=== PATIENT | male | born 1990 | race Caucasian/White ===

== ENCOUNTER 2019-05-25 12:19 | Emergency (ER) | payer OTHER ==
--- OUTSIDE RECORDS SUMMARY | 2019-05-25 12:43 | XMS REPORT | Continuity of Care Document ---
:1990 External Reference #:[id number] Author Name Bisi Ron NP Address [address] [place] [address] Care Team Providers Name Role Phone Balta Jung MD - Family Care Team Information Sas Developer [phone] Medicine Problems Description No Information Available Social History Type Date Description Comments Sex Unknown Tobacco Use Start: Unknown Nonsmoker Smoking Status Reviewed: 02/14/18 Nonsmoker Allergies, Adverse Reactions, Alerts Active Allergies Reaction Severity Comments Date NKDA 11/24/2017 Tree Nuts Anaphylaxis 11/24/2017 Sesame Anaphylaxis 11/24/2017 Medications Active Medications SIG Qnty Indications Ordering Provider Date Rizatriptan Benzoate take at first 5tabs M54.81 Bisi Sparks 03/28/2019 sign of headache. OLLIE Ron 10mg Tablets may repeat once after 2 hours. do not use more than 3 days per week. Epipen 2-Saturnino use as directed 2units Balta Gaona 09/20/2018 MD Erich 0.3mg/0.3ML Solution Auto-Inject Losartan Potassium 1 by mouth every 90tabs Balta Gaona 50mg day MD Erich Tablets Alprazolam 1 tab po bid as 30tabs Balta Gaona 0.25mg needed anxiety MD Erich Tablets Valacyclovir HCL take 1 tablet by 14tabs Rhett Escobedo, 1gm mouth twice a day M.D. Tablets for 7 days Immunizations Description No Information Available Vital Signs Date Vital Result Comment 03/28/2019 3:53pm BP Systolic 102 mmHg BP Diastolic 68 mmHg Heart Rate 78 /min Body Temperature 98.4 F Respiratory Rate 16 /min Weight 132.00 lb 11/27/2018 11:15am BP Systolic 90 mmHg BP Diastolic 60 mmHg Heart Rate 64 /min Body Temperature 97.7 F Respiratory Rate 16 /min Height 72 inches 6'0" Weight 135.00 lb BMI (Body Mass Index) 18.3 kg/m2 Results Test Date Facility Test Result H/L Range Note Xray 12/21/2018 [facility] Chest W/O Contrast SEE [facility] [phone] Procedures Description No Information Available Medical Devices Description No Information Available Encounters Type Date Location Provider Dx Diagnosis Office Visit 11/27/2018 [facility] Office Balta Gaona M25.512 Pain in left 11:20a MD Erich shoulder Assessments Date Code Description Provider 03/28/2019 M54.81 Occipital neuralgia Bisi Ron, OLLIE 11/27/2018 M25.512 Pain in left shoulder Balta Jung MD Plan of Treatment 03/28/2019 - Bisi Ron, NPM54.81 Occipital neuralgiaNew Medication: Rizatriptan Benzoate 10 mg - take at first sign of headache. may repeat once after 2 hours. do not use more than 3 days per week.Comments:I have no concerns today -- no signs of herpetic outbreak or giant cell artereritis. Please call GERARDO if condition changes/worsens in any wayAllComments:1. Patient has been queried about patient's goals/preferences and functional/lifestyle goals at relevant visits. If relevant, describe: Has been discussed, noted above2. Treatment goals as explainedto the patient: see above3. Are there barriers to meeting treatment goals? Yes If Yes, please describe: Barriers include possible insurance limits, disease process, and difficulty with lifestyle changes4. Self-Management goals as described to the patient: Yes, see above As always, we strongly encourage a healthy diet and making physical activity a part of your every day life. If you have questions about how or where to start, please contact the office. Functional Status Description No Information Available Mental Status Description No Information Available Referrals Description No Information Available
--- OUTSIDE RECORDS SUMMARY | 2019-05-25 12:43 | XMS REPORT | Continuity of Care Document ---
:1990 External Reference #:[id number] Author Name Balta Jung MD Address [address] [facility] [place] [address] Care Team Providers Name Role Phone Balta Jung MD - Family Care Team Information Fingernail Technician Medicine Problems Description No Information Available Social History Type Date Description Comments Sex Unknown Tobacco Use Start: Unknown Nonsmoker Smoking Status Reviewed: 02/14/18 Nonsmoker Allergies, Adverse Reactions, Alerts Active Allergies Reaction Severity Comments Date NKDA 11/24/2017 Tree Nuts Anaphylaxis 11/24/2017 Sesame Anaphylaxis 11/24/2017 Medications Active Medications SIG Qnty Indications Ordering Provider Date Famotidine take one tablet 60tabs K21.9 Balta Gaona 04/07/2019 20mg Tablets by mouth twice a MD Erich day Rizatriptan Benzoate take at first 5tabs M54.81 [...] Available Vital Signs Date Vital Result Comment 04/07/2019 9:36am BP Systolic 110 mmHg BP Diastolic 60 mmHg Heart Rate 66 /min Body Temperature 98.4 F Respiratory Rate 16 /min Height 72 inches 6'0" Weight 132.56 lb BMI (Body Mass Index) 18.0 kg/m2 03/28/2019 3:53pm BP Systolic 102 mmHg BP Diastolic 68 mmHg Heart Rate 78 /min Body Temperature 98.4 F Respiratory Rate 16 /min Weight 132.00 lb Results Test Date Facility Test Result H/L Range Note Laboratory test 04/07/2019 [facility] Sedimentation Rate 2mm finding (607)- - CBC Electronic 04/07/2019 [facility] WBC 6.48 4.0-10.0 ([facility]) (607)- - RBC 4.92 3.93-6.0 Hemoglobin ([facility]CMC/CTX) 15.8 g/dL 12.0-17.0 Hematocrit ([facility]/CTX) 43.4 % 35.0-50.0 Mean Corpuscular Vol 88.2 fL 80-95 Mean Corpuscular Hemoglobin 32.1 pg 25.6-32.2 Mean Corpuscular Hemo Concen 36.4 g/dL High 32.2-36.0 Platelets 167 10^3/ul 163-400 RDW-CV 12.0 11.6-14.4 Mean Platelet Volume 10.4 fL 8.0-12.4 Absolute Neutrophils BLD 3.34 1.56-6.13 Absolute Lymphocytes 2.19 1.18-3.74 Absolute Monocytes BLD Auto 0.69 0.24-0.82 Absolute Eos Blood 0.20 0.04-0.54 Absolute Basophils 0.04 0.01-0.08 Neutrophil % 51.6 % 34.0-70.0 Lymph% 33.8 % 20.0-52.0 Monocytes % 10.6 % 5.0-12.0 Eos % 3.1 % 0.7-7.0 Basophil% 0.6 % 0-1.2 Xray 12/21/2018 [facility] Chest W/O Contrast SEE [facility] [phone] Procedures Description No Information Available Medical Devices Description No Information Available Encounters Type Date Location Provider Dx Diagnosis Office Visit 03/28/2019 [facility] Office Bisi Sparks M54.81 Occipital 4:15p OLLIE Ron neuralgia Office Visit 11/27/2018 [facility] Office Balta Gaona M25.512 Pain in left 11:20a MD Erich shoulder Assessments Date Code Description Provider 04/07/2019 M54.81 Occipital neuralgia Balta Jung MD 04/07/2019 K21.9 Gastro-esophageal reflux disease without Balta Jung MD esophagitis 03/28/2019 M54.81 Occipital neuralgia Bisi Ron NP 11/27/2018 M25.512 Pain in left shoulder Balta Jung MD Plan of Treatment 04/07/2019 - Balta Jung, MDM54.81 Occipital tlnrszzhpM24.9 Gastro- esophageal reflux disease without esophagitisNew Medication:Famotidine 20 mg - take one tablet by mouth twice a dayAllComments:Medication Management Patient Understands medications he's taking? Yes No Are there Barriersto Adherence? Yes No Has the patient been asked about herbal supplements and therapies, and OTC meds? Yes No Functional Status Description No Information Available Mental Status Description No Information Available Referrals Description No Information Available
--- OUTSIDE RECORDS SUMMARY | 2019-05-25 12:43 | XMS REPORT | Continuity of Care Document ---
:1990 External Reference #:[id number] Author Name Balta Jung MD Address [address] [facility] [place] [address] Care Team Providers Name Role Phone Balta Jung MD - Family Care Team Information Radio Adjuster Medicine Problems Description No Information Available Social [...] Available Vital Signs Date Vital Result Comment 05/14/2019 1:29pm BP Systolic 98 mmHg BP Diastolic 46 mmHg Heart Rate 64 /min Body Temperature 97.5 F Respiratory Rate 16 /min Height 72 inches 6'0" Weight 131.00 lb BMI (Body Mass Index) 17.8 kg/m2 04/07/2019 9:36am BP Systolic 110 mmHg BP Diastolic 60 mmHg Heart Rate 66 /min Body Temperature 98.4 F Respiratory Rate 16 /min Height 72 inches 6'0" Weight 132.56 lb BMI (Body Mass Index) 18.0 kg/m2 Results Test Date Facility Test Result H/L Range Note Laboratory test 04/07/2019 [facility] Sedimentation Rate 2mm finding (607)- - CBC Electronic 04/07/2019 [facility] Medicine WBC 6.48 4.0-10.0 ([facility]) (607)- [...] [facility] W/O Contrast SEE [facility] [phone] Procedures Description No Information Available Medical Devices Description No Information Available Encounters Type Date Location Provider Dx Diagnosis Office Visit 04/07/2019 [facility] Balta Gaona M54.81 Occipital neuralgia 9:40a MD Erich K21.9 Gastro-esophageal reflux disease without esophagitis Office Visit 03/28/2019 4:15p [facility] Bisi Sparks M54.81 Occipital OLLIE Ron neuralgia Office Visit 11/27/2018 11:20a [facility] aBlta Gaona M25.512 Pain in left MD Erich shoulder Assessments Date Code Description Provider 05/14/2019 K21.9 Gastro-esophageal reflux disease without Balta Jung MD esophagitis 05/14/2019 Q87.410 Marfan's syndrome with aortic dilation Balta Jung MD 04/07/2019 M54.81 Occipital neuralgia Balta Jung MD 04/07/2019 K21.9 Gastro-esophageal reflux disease without Balta Jung MD esophagitis 03/28/2019 M54.81 Occipital neuralgia Bisi Ron NP 11/27/2018 M25.512 Pain in left shoulder Balta Jung MD Plan of Treatment 05/14/2019 - Balta Jung MDK21.9 Gastro-esophageal reflux disease without lpyvstrgzuiG65.410 Marfan's syndrome with aortic dilationAllComments: Medication Management Patient Understands medications he's taking? Yes No Are there Barriersto Adherence? Yes No Has the patient been asked about herbal supplements and therapies, and OTC meds? Yes No Functional Status Description No Information Available Mental Status Description No Information Available Referrals Refer to Reason for Referral Status Appt Date [facility] EGD ind-GERD jw Created [address] [place], [place] [id number] [phone]
[2019-05-25 12:48] LABS: ABS Basophils 0.1 10^3/ul (0-0.2); ABS Eosinophils 0.2 10^3/ul (0-0.6); ABS Lymphocytes 2.3 10^3/ul (1.0-4.8); ABS Monocytes 0.7 10^3/ul (0-0.8); ABS Neutrophils 5.1 10^3/ul (1.5-7.7); Eosinophil % 2.1 %; Hematocrit 46 % (42-52); Hemoglobin 16.4 g/dL (14.0-18.0); Lymphocyte % 27.8 %; Mean Corpuscular HGB Conc 35 g/dL (31-36); Mean Corpuscular Hemoglobin 32 pg (27-31); Mean Corpuscular Volume 90 fL (80-94); Mean Platelet Volume 8.6 fL (7.4-10.4); Nucleated Red Blood Cells % 0.1; Platelet Count 208 10^3/uL (150-450); Red Blood Count 5.14 10^6 /uL (4.18-5.48); Red Cell Distribution Width 13 % (10-15); White Blood Count 8.4 10^3/uL (3.5-10.8)
[2019-05-25 13:07] LABS: Albumin 4.8 g/dL (3.2-5.2); Albumin/Globulin Ratio 1.7 (1-3); BUN/Creatinine Ratio 15.9 (8-20); Calcium 9.8 mg/dL (8.6-10.3); EGFR African American 136.4 (>60); EGFR Non-African American 112.7 (>60); Globulin 2.9 g/dL (2-4); Total Bilirubin 0.9 mg/dL (0.2-1.0); Total Protein 7.7 g/dL (6.4-8.9)
--- NOTE | 2019-05-25 15:55 | ED ---
Back Pain - HPI Summary HPI Summary: 29 year old male presents to the ED with a chief complaint of back pain that began several weeks ago but has gotten worse in the past several hours. The pain is localized in the middle back and radiates to the left flank, made worse by looking downwards, and is an 8/10 in severity. Patient reports pain beginning several weeks ago, and he has had transient pains either on his chest , his abdomen, or his back. Patient also notes an occasional twitch in his neck. He had severe burning pain in his epigastric region several days ago, but it resolved on its own. Patient has no chest pain when running. He woke up this morning with no pain, but it suddenly appeared while he was at work today. He has a history of Marfan's syndrome. No history of HTN, DM, or HLD. Family history of HTN. Patient does not smoke tobacco. He occasionally drinks alcohol. - History of Current Complaint Chief Complaint: EDBackInjuryPain Stated Complaint: BACK PAIN AND CHEST PAIN PER PT Time Seen by Provider: 05/25/19 14:48 Hx Obtained From: Patient Onset/Duration: Lasting Weeks, Still Present, Worse Since - today at work Onset/Duration: Started Weeks Ago, Still Present, Worse Since - today at work Timing: Intermittent, Lasting Hours Back Pain Location: Is Discrete @ - middle back, Radiates To - left flank Severity Initially: Severe Severity Currently: Severe Pain Intensity: 8 - 8 when he looks down, less pain when head is straight Pain Scale Used: 0-10 Numeric Character: Sharp Aggravating Symptom(s): Movement - moving head downwards Alleviating Symptom(s): Position Associated Signs And Symptoms: Positive: Abdominal Pain, Flank Pain - Allergies/Home Medications Allergies/Adverse Reactions: Allergies Allergy/AdvReac Type Severity Reaction Status Date / Time sesame oil Allergy Anaphylatic Verified 12/18/18 11:22 Shock sesame seed Allergy Anaphylatic Verified 12/18/18 11:22 Shock tree nut Allergy Anaphylatic Verified 12/18/18 11:22 Shock Home Medications: Home Medications ALPRAZolam TAB* [Xanax TAB*] 0.25 mg PO BID PRN 05/25/19 [History Confirmed ] EPINEPHrine [Epipen] 0.3 mg IM ONCE PRN 05/25/19 [History Confirmed 05/25/19] Famotidine TAB* [Pepcid 20 MG TAB*] 20 mg PO BID 05/25/19 [History Confirmed ] Losartan TAB* [Cozaar TAB*] 50 mg PO DAILY 05/25/19 [History Confirmed 05/25/19] Multivitamins/Minerals TAB* [Theragran/minerals TAB*] 1 tab PO DAILY 05/25/19 [ History Confirmed 05/25/19] Rizatriptan Benzoate [Maxalt-Mail Deliverer] 10 mg PO DAILY 05/25/19 [History Confirmed ] PMH/Surg Hx/FS Hx/Imm Hx Endocrine/Hematology History: Denies: Hx Diabetes Cardiovascular History: Reports: Other Cardiovascular Problems/Disorders - POSS MARFANS SYNDROME. Denies: Hx Hypertension, Hx Pacemaker/ICD History: Denies: Hx Renal Disease Sensory History: Denies: Hx Hearing Aid Psychiatric History: Denies: Hx Panic Disorder - Surgical History Surgery Procedure, Year, and Place: APPENDIX. VARICOCELECTOMY - Immunization History Immunizations Up to Date: Yes Infectious Disease History: No Infectious Disease History: Denies: Traveled Outside the [place] in Last 30 Days - Family History Known Family History: Positive: Hypertension - Social History Alcohol Use: Occasionally Substance Use Type: Reports: None Smoking Status (MU): Never Smoked Tobacco Review of Systems Positive: Chest Pain Positive: Abdominal Pain Positive: flank pain Positive: Myalgia, Other - Back Pain All Other Systems Reviewed And Are Negative: Yes Physical Exam - Summary Physical Exam Summary: VITAL SIGNS: Reviewed. GENERAL: Patient is a well-developed and nourished male who is lying comfortable in the stretcher. Patient is not in any acute respiratory distress. HEAD AND FACE: No signs of trauma. No ecchymosis, hematomas or skull depressions. No sinus tenderness. EYES: PERRLA, EOMI x 2, No injected conjunctiva, no nystagmus. EARS: Hearing grossly intact. Ear canals and tympanic membranes are within normal limits. MOUTH: Oropharynx within normal limits. NECK: Supple, trachea is midline, no adenopathy, no JVD, no carotid bruit, no c- spine tenderness, neck with full ROM. CHEST: Symmetric, no tenderness at palpation. LUNGS: Clear to auscultation bilaterally. No wheezing or crackles. CVS: Regular rate and rhythm, S1 and S2 present, no murmurs or gallops appreciated. ABDOMEN: Soft, non-tender. No signs of distention. No rebound, no guarding, and no masses palpated. Bowel sounds are normal. EXTREMITIES: FROM in all major joints, no edema, no cyanosis or clubbing. NEURO: Alert and oriented x 3. No acute neurological deficits. Speech is normal and follows commands. SKIN: Dry and warm. Triage Information Reviewed: Yes Vital Signs On Initial Exam: Initial Vitals Temp Pulse Resp BP Pulse Ox 98.0 F 71 16 141/82 100 05/25/19 12:27 05/25/19 12:27 05/25/19 12:27 05/25/19 12:27 05/25/19 12:27 Vital Signs Reviewed: Yes Procedures - Sedation Patient Received Moderate/Deep Sedation with Procedure: No Diagnostics - Vital Signs Vital Signs Temp Pulse Resp BP Pulse Ox 05/25/19 14:53 99 05/25/19 14:24 98.4 F 65 16 109/64 98 05/25/19 12:27 98.0 F 71 16 141/82 100 - Laboratory Lab Results: Lab Results 05/25/19 05/25/19 05/25/19 Range/Units 12:37 12:37 12:37 WBC 8.4 (3.5-10.8) 10^3/uL RBC 5.14 (4.18-5.48) 10^6 /uL Hgb 16.4 (14.0-18.0) g/dL Hct 46 (42-52) % MCV 90 (80-94) fL MCH 32 H (27-31) pg MCHC 35 (31-36) g/dL RDW 13 (10-15) % Plt Count 208 (150-450) 10^3/uL MPV 8.6 (7.4-10.4) fL Neut % (Auto) 61.1 % Lymph % (Auto) 27.8 % Miller % (Auto) 7.9 % Eos % (Auto) 2.1 % Baso % (Auto) 1.1 % Absolute Neuts (auto) 5.1 (1.5-7.7) 10^3/ul Absolute Lymphs (auto) 2.3 (1.0-4.8) 10^3/ul Absolute Monos (auto) 0.7 (0-0.8) 10^3/ul Absolute Eos (auto) 0.2 (0-0.6) 10^3/ul Absolute Basos (auto) 0.1 (0-0.2) 10^3/ul Absolute Nucleated RBC 0.0 10^3/ul Nucleated RBC % 0.1 Sodium 139 (135-145) mmol/L Potassium 4.0 (3.5-5.0) mmol/L Chloride 103 (101-111) mmol/L Carbon Dioxide 29 (22-32) mmol/L Anion Gap 7 (2-11) mmol/L BUN 13 (6-24) mg/dL Creatinine 0.82 (0.67-1.17) mg/dL Est GFR ( Amer) 136.4 (>60) Est GFR (Non-Af Amer) 112.7 (>60) BUN/Creatinine Ratio 15.9 (8-20) Glucose 94 (70-100) mg/dL Lactic Acid 1.6 (0.5-2.0) mmol/L Calcium 9.8 (8.6-10.3) mg/dL Total Bilirubin 0.90 (0.2-1.0) mg/dL AST 20 (13-39) U/L ALT 20 (7-52) U/L Alkaline Phosphatase 53 (34-104) U/L Troponin I 0.00 (<0.04) ng/mL Total Protein 7.7 (6.4-8.9) g/dL Albumin 4.8 (3.2-5.2) g/dL Globulin 2.9 (2-4) g/dL Albumin/Globulin Ratio 1.7 (1-3) Result Diagrams: 05/25/19 12:37 05/25/19 12:37 Lab Statement: Any lab studies that have been ordered have been reviewed, and results considered in the medical decision making process. - Radiology CXR Radiology Interpretation Completed By: Radiologist Summary of Radiographic Findings: Impression shows no evidence for acute intrathoracic disease. An ED physician has reviewed this report. - CT CT Chest CT Interpretation Completed By: Radiologist Summary of CT Findings: CT shows the following impressions: 1. NO AORTIC INTIMAL FLAP TO SUGGEST AORTIC DISSECTION. 2. DILATATION OF THE AORTIC ROOT UP TO 3.8 CM TRANSVERSELY. 3. HEPATOMEGALY WITH FATTY INFILTRATION OF LIVER. An ED physician has reviewed this report. - EKG 1220 Cardiac Rate: NL - 64 bpm EKG Rhythm: Sinus Rhythm Summary of EKG Findings: EKG at 1220 shows normal sinus rhythm at [address] elevations. An ED physician has interpreted and reviewed this report. Back Pain Course/Dx - Course Assessment/Plan: Patient is a 29-year-old male who presents to the emergency department with a chief complaint of chest pain with radiation to the back. Blood work without any significant abnormality. 2 troponins 4 hours apart negative. EKG shows no acute ST elevations. Chest x-ray shows no acute pathology. The patient has history of Marfan syndrome and he is worried about having a dissection. CTA IMPRESSION: 1. NO AORTIC INTIMAL FLAP TO SUGGEST AORTIC DISSECTION. 2. DILATATION OF THE AORTIC ROOT UP TO 3.8 CM TRANSVERSELY. 3. HEPATOMEGALY WITH FATTY INFILTRATION OF LIVER. Patient reports that all symptoms have resolved. Because the patient has no significant comorbidities and no family history of cardiovascular disease at his age the patient will be discharged home with follow up of PMD. I discussed all the findings and test results with the patient. Patient was instructed to return to the emergency room immediately if any of the symptoms return or worsen. Patient understands and agrees. Plan of care was discussed with the patient and patient understands and agrees. All questions were answered at patient satisfaction. There were no further complaints or concerns. PE before discharge: CVS: S1 and S2 present. No murmurs appreciated. Abdominal exam before discharge: Soft, non- tender. No signs of distention. No rebound no guarding, and no masses palpated. Bowel sounds are normal. Patient is alert and oriented x 3. Patient is hemodynamically stable. - Diagnoses Provider Diagnoses: Chest pain Discharge ED - Sign-Out/Discharge Documenting (check all that apply): Patient Departure - discharge - Discharge Plan Condition: Stable Disposition: HOME Patient Education Materials: Chest Pain (ED) Referrals: Balta Jung MD [Primary Care Provider] - Additional Instructions: Follow up with your primary care provider in 2-3 days. Return to the ED if you experience new or worsened symptoms. - Attestation Statements Document Initiated by Scribe: Yes Documenting Scribe: Clyde Harris Provider For Whom Yovany is Documenting (Include Credential): Dr. Joshua Mello MD. Scribe Attestation: IClyde, scribed for Dr. Joshua Mello MD. on 05/25/19 at 1837. Status of Scribe Document: Ready
[2019-05-25] MEDS ORDERED: Iohexol 350* (CONTRAST) 500 ML MDV IV ONE (16:08)
[2019-05-25 18:08] VITALS: BP 110/71
== END 2019-05-25 18:14 | disposition home or self-care (01) ==
LOC: ED 12:19
DX: R07.9 Chest pain, unspecified (principal); Z79.899 Other long term (current) drug therapy
CPT/HCPCS: 36415; 71045; 71275; 74174; 80053; 83605; 84484; 85025; 93005; 99282; Q9967

== ENCOUNTER 2019-10-17 09:16 | Emergency (ER) | payer OTHER ==
--- NOTE | 2019-10-17 09:46 | ED ---
HPI Chest Pain - HPI Summary HPI Summary: 29 year old M presenting to [facility] alone complains of a discomfort that feels like "bloating" under his right ribs that radiates to his back since 2 days before 10/17/2019. Patient reports he felt fine most of the day yesterday but upon taking a deep breath, felt intense discomfort in the same spot. He woke up this morning with the same sensation and called his family doctor, , who told him to come in to [facility]. Patient denies SOB, diaphoresis, fever, pain and swelling in the legs. He has PMHx of Marfan syndrome but he saw his supervisor assembly at home ([facility]) last Tuesday who said he had no abnormalities in his aorta. He had a long car ride to and from [facility]. No PMHx of blood clots. FHx of stroke from his grandmother. No FHx of [place]. NKDA. The patient rates the pain 3/ 10 in severity. Symptoms aggravated by deep breaths. Symptoms alleviated by nothing. Medications reviewed. Allergies noted. Home Medications Medication Instructions Recorded Confirmed Type ALPRAZolam TAB* [Xanax TAB*] 0.25 mg PO BID PRN 05/25/19 05/25/19 History EPINEPHrine [Epipen] 0.3 mg IM ONCE PRN 05/25/19 05/25/19 History Losartan TAB* [Cozaar TAB*] 50 mg PO DAILY 05/25/19 05/25/19 History ValACYclovir (*) [Valtrex 1 GM(*)] 1 gm PO DAILY 06/13/19 06/13/19 History - History of Current Complaint Chief Complaint: EDChestPainROMI Time Seen by Provider: 10/17/19 09:32 Hx Obtained From: Patient Onset/Duration: Started Days Ago, Still Present Pain Intensity: 3 Pain Scale Used: 0-10 Numeric Chest Pain Location: Diffuse - right side under ribs and radiates to back Chest Pain Radiates: Yes Chest Pain Radiates To:: Back Character: Other: - 'bloating' Aggravating Factor(s): Deep Breaths Alleviating Factor(s): Nothing Associated Signs and Symptoms: Negative: Shortness of Breath, Fever, Diaphoresis , Calf Pain/Swelling - Allergy/Home Medications Allergies/Adverse Reactions: Allergies Allergy/AdvReac Type Severity Reaction Status Date / Time sesame oil Allergy Anaphylatic Verified 10/17/19 09:54 Shock sesame seed Allergy Anaphylatic Verified 10/17/19 09:54 Shock tree nut Allergy Anaphylatic Verified 10/17/19 09:54 Shock Home Medications: Home Medications ALPRAZolam TAB* [Xanax TAB*] 0.25 mg PO BID PRN 05/25/19 [History Confirmed 06/27] EPINEPHrine [Epipen] 0.3 mg IM ONCE PRN 05/25/19 [History Confirmed 10/17/19] Losartan TAB* [Cozaar TAB*] 50 mg PO DAILY 05/25/19 [History Confirmed 10/17/19] ValACYclovir (*) [Valtrex 1 GM(*)] 1 gm PO SEE INSTRUCTIONS 06/13/19 [History Confirmed 10/17/19] Ibuprofen TAB* [Advil TAB*] 200 mg PO Q6H PRN 10/17/19 [History Confirmed ] PMH/Surg Hx/FS Hx/Imm Hx Endocrine/Hematology History: Denies: Hx Diabetes Cardiovascular History: Reports: Other Cardiovascular Problems/Disorders - POSS MARFANS SYNDROME. Denies: Hx Hypertension, Hx Pacemaker/ICD History: Denies: Hx Renal Disease Sensory History: Denies: Hx Hearing Aid Psychiatric History: Denies: Hx Panic Disorder - Surgical History Surgery Procedure, Year, and Place: APPENDIX. VARICOCELECTOMY Infectious Disease History: No Infectious Disease History: Denies: Traveled Outside the [place] in Last 30 Days - Family History Known Family History: Positive: Hypertension - Social History Alcohol Use: Occasionally Substance Use Type: Reports: None Smoking Status (MU): Never Smoked Tobacco Review of Systems Negative: Fever Positive: Chest Pain - 'bloating' discomfort under right ribs that radiates to back Negative: Shortness Of Breath Negative: Edema - no pain and swelling in legs All Other Systems Reviewed And Are Negative: Yes Physical Exam - Summary Physical Exam Summary: Constitutional: Well-developed, Well-nourished, Alert. (-) Distressed Skin: Warm, Dry HENT: Normocephalic; Atraumatic Eyes: Conjunctiva normal Neck: Musculoskeletal ROM normal neck. (-) JVD, (-) Stridor, (-) Tracheal deviation Cardio: Rhythm regular, rate normal, Heart sounds normal; Intact distal pulses; Radial pulses are 2+ and symmetric. (-) Murmur Pulmonary/Chest wall: Effort normal. (-) Respiratory distress, (-) Wheezes, (-) Rales Abd: Soft, (-) tenderness, (-) Distension, (-) Guarding, (-) Rebound Musculoskeletal: (-) Edema Lymph: (-) Cervical adenopathy Neuro: Alert, Oriented x3 Psych: Mood and affect Normal Triage Information Reviewed: Yes Vital Signs On Initial Exam: Initial Vitals Temp Pulse Resp BP Pulse Ox 97.7 F 69 18 137/78 99 10/17/19 09:27 10/17/19 09:27 10/17/19 09:27 10/17/19 09:27 10/17/19 09:27 Vital Signs Reviewed: Yes Procedures - Sedation Patient Received Moderate/Deep Sedation with Procedure: No Diagnostics - Vital Signs Vital Signs Temp Pulse Resp BP Pulse Ox 10/17/19 09:27 97.7 F 69 18 137/78 99 - Laboratory Result Diagrams: 10/17/19 09:47 10/17/19 09:43 Lab Statement: Any lab studies that have been ordered have been reviewed, and results considered in the medical decision making process. - EKG 0921 Cardiac Rate: NL EKG Rhythm: Sinus Rhythm Summary of EKG Findings: An EKG at 0921 reveals sinus rhythm at a rate of 60 bpm with no ischemic changes. No STEMI. has reviewed and interpreted this EKG. Chest Pain Course/Dx - Course Course Of Treatment: Patient is here with right upper quadrant and right sided chest pain. Patient does have a history of Marfan syndrome. Patient size supervisor assembly on Tuesday where his aorta was evaluated with no evidence of any abnormality. Patient is overall low risk [place] for PE so a d-dimer sent which was negative. Patient had an EKG which showed no ischemic changes. Patient had a normal troponin. Given patient's low risk status for ACS, patient was discharged with PCP follow-up. Patient did have elevated bilirubin and INR on exam and was told to follow up with his PCP in one week to get that further evaluated. Patient had no abdominal tenderness on exam so a ultrasound or CT scan was not ordered - Diagnoses Provider Diagnoses: Chest pain, Back pain, RUQ pain Discharge ED - Sign-Out/Discharge Documenting (check all that apply): Patient Departure - discharge - Discharge Plan Condition: Stable Disposition: HOME Patient Education Materials: Chest Pain (ED) Referrals: Balta Jung MD [Primary Care Provider] - Additional Instructions: Please follow-up with your primary care doctor in 1 week to have your bilirubin and INR rechecked Please return if you have worsening chest pain, shortness of breath, worsening abdominal pain, any other concerning symptoms - Billing Disposition and Condition Condition: STABLE Disposition: Home - Attestation Statements Document Initiated by Scribe: Yes Documenting Scribe: Kaleb Kebede Provider For Whom Yovany is Documenting (Include Credential): Dr.Keith Tobias Talamantes MD Scribe Attestation: I, Kaleb Kebede, scribed for Dr.Keith Tobias Talamantes MD on 10/17/19 at 1240. Scribe Documentation Reviewed: Yes Provider Attestation: The documentation as recorded by the Kaleb ayala accurately reflects the service I personally performed and the decisions made by me, Dr.Keith Tobias Talamantes MD Status of Scribe Document: Viewed
[2019-10-17 10:14] LABS: ABS Eosinophils 0.2 10^3/ul (0-0.6); ABS Lymphocytes 1.6 10^3/ul (1.0-4.8); ABS Monocytes 0.5 10^3/ul (0-0.8); ABS Neutrophils 3.6 10^3/ul (1.5-7.7); Eosinophil % 3.9 %; Hematocrit 44 % (42-52); Hemoglobin 15.7 g/dL (14.0-18.0); Lymphocyte % 26.9 %; Mean Corpuscular HGB Conc 35 g/dL (31-36); Mean Corpuscular Hemoglobin 32 pg (27-31); Mean Corpuscular Volume 91 fL (80-94); Mean Platelet Volume 8.6 fL (7.4-10.4); Platelet Count 175 10^3/uL (150-450); Red Blood Count 4.89 10^6 /uL (4.18-5.48); Red Cell Distribution Width 12 % (10-15)
[2019-10-17 10:16] LABS: Albumin 4.5 g/dL (3.2-5.2); BUN/Creatinine Ratio 14.5 (8-20); Calcium 9.5 mg/dL (8.6-10.3); EGFR African American 134.5 (>60); EGFR Non-African American 111.1 (>60); Globulin 2.3 g/dL (2-4); Potassium 4.4 mmol/L (3.5-5.0); Total Bilirubin 1.2 mg/dL (0.2-1.0); Total Protein 6.8 g/dL (6.4-8.9)
[2019-10-17 10:42] LABS: INR 1.17 (0.82-1.09)
[2019-10-17 11:19] VITALS: BP 116/77
== END 2019-10-17 11:19 | disposition home or self-care (01) ==
LOC: ED 09:16
DX: R07.89 Other chest pain (principal); M54.9 Dorsalgia, unspecified; R10.11 Right upper quadrant pain; Z90.89 Acquired absence of other organs; Z91.018 Allergy to other foods
CPT/HCPCS: 36415; 80053; 83690; 84484; 85025; 85379; 85610; 93005; 99283